=== PATIENT | male | born 1950 | race Caucasian/White ===

== ENCOUNTER 2021-05-02 12:15 | Emergency (ER) | payer OTHER ==
[2021-05-02] MEDS ORDERED: Acetaminophen 325 MG Tab PO PRN ×2 (13:38→14:00)
--- NOTE | 2021-05-02 13:38 | EDM.PDOC ---
ED HPI GENERAL MEDICAL PROBLEM - General Chief Complaint: General Stated Complaint: MEDICAL [facility] Time Seen by Provider: 05/02/21 13:26 Source of Information: Reports: Patient, RN Notes Reviewed History Limitations: Reports: No Limitations - History of Present Illness INITIAL COMMENTS - FREE TEXT/NARRATIVE: -year-old gentleman presents emergency department day complaint of fever, body aches, diarrhea he feels lightheaded and dizzy he has had symptoms for about 6 days was diagnosed with COVID-19 yesterday. Brought in by EMS services is systolic blood pressure has been on the lower side systolic of 90 Generalized Pain Score (Numeric/FACES): 6 Lower Abdomen Pain Score (Numeric/FACES): 6 - Related Data Allergies Allergy/AdvReac Type Severity Reaction Status Date / Time No Known Allergies Allergy Verified 05/02/21 12:25 Home Meds: Home Meds Cetirizine [ZyrTEC] 10 mg PO DAILY 05/02/21 [History] Levothyroxine 112 mcg PO ACBREAKFAST 05/02/21 [History] Losartan [Cozaar] 50 mg PO DAILY 05/02/21 [History] Omeprazole 20 mg PO DAILY 05/02/21 [History] Tamsulosin [Flomax] 0.4 mg PO DAILY 05/02/21 [History] Zolpidem [Ambien] 10 mg PO DAILY 05/02/21 [History] hydroCHLOROthiazide [Hydrochlorothiazide] 12.5 mg PO DAILY 05/02/21 [History] Past Medical History Cardiovascular History: Reports: High Cholesterol, Hypertension Gastrointestinal History: Reports: GERD Genitourinary History: Reports: BPH Endocrine/Metabolic History: Reports: Hypothyroidism - Past Surgical History GI Surgical History: Reports: Colonoscopy Social & Family History - Tobacco Use Tobacco Use Status *Q: Never Tobacco User - Caffeine Use Caffeine Use: Reports: Coffee - Recreational Drug Use Recreational Drug Use: No ED ROS GENERAL - Review of Systems Review Of Systems: See Below Constitutional: Reports: Fever, Chills, Weakness, Fatigue HEENT: Reports: No Symptoms Respiratory: Reports: No Symptoms Cardiovascular: Reports: No Symptoms GI/Abdominal: Reports: Abdominal Pain, Diarrhea, Nausea, Vomiting : Reports: No Symptoms Neurological: Reports: No Symptoms ED EXAM, GENERAL - Physical Exam Exam: See Below Exam Limited By: No Limitations General Appearance: Alert, WD/WN, No Apparent Distress Respiratory/Chest: No Respiratory Distress, Lungs Clear, Normal Breath Sounds, No Accessory Muscle Use, Chest Non-Tender Cardiovascular: Regular Rate, Rhythm, No Murmur GI/Abdominal: Soft, Non-Tender Course - Vital Signs Last Recorded V/S: Last Vital Signs Temp 98.4 F 05/02/21 14:58 Pulse 69 05/02/21 14:58 Resp 18 05/02/21 14:58 BP 105/66 05/02/21 14:58 Pulse Ox 96 05/02/21 14:58 - Orders/Labs/Meds Orders: Active Orders 24 hr Category Date Time Status Acetaminophen [TylenoL] Med 05/02/21 14:00 Active 650 mg PO ONETIME PRN Acetaminophen [TylenoL] Med 05/02/21 13:38 Active 650 mg PO Q4H PRN EPINEPHrine [Adrenalin] Med 05/02/21 14:00 Active 0.3 mg IM ONETIME PRN Famotidine [Pepcid] Med 05/02/21 14:00 Active 20 mg IV ONETIME PRN Sodium Chloride 0.9% [Normal Saline] 1,000 ml Med 05/02/21 14:00 Active IV ASDIRECTED diphenhydrAMINE [Benadryl] Med 05/02/21 14:00 Active 50 mg IVPUSH ONETIME PRN methylPREDNISolone Sod Succ [Solu-MEDROL] Med 05/02/21 14:00 Active 125 mg IVPUSH ONETIME PRN Isolation [COMM] Stat Oth 05/02/21 13:38 Ordered Medication Orders Acetaminophen (Acetaminophen 325 Mg Tab) 650 mg PO Q4H PRN PRN Reason: Fever Greater Than 101 Acetaminophen (Acetaminophen 325 Mg Tab) 650 mg PO ONETIME PRN PRN Reason: HEADACHE,CHILLS Diphenhydramine HCl (Diphenhydramine 50 Mg/Ml Sdv) 50 mg IVPUSH ONETIME PRN PRN Reason: ALLERGIC RXN Epinephrine HCl (Epinephrine 1 Mg/Ml Sdv) 0.3 mg IM ONETIME PRN PRN Reason: ALLERGIC RXN Famotidine (Famotidine 20 Mg/2 Ml Sdv) 20 mg IV ONETIME PRN PRN Reason: ALLERGIC RXN Sodium Chloride (Normal Saline) 1,000 mls @ 500 mls/hr IV ASDIRECTED [facility] Last Admin: 05/02/21 13:52 Dose: 500 mls/hr Documented by: VALENTINO Methylprednisolone Sodium Succinate (Methylprednisolone Sodium Succinate 125 Mg/2 Ml Sdv) 125 mg IVPUSH ONETIME PRN PRN Reason: ALLERGIC RXN Labs: Laboratory Tests 05/02/21 05/02/21 05/02/21 Range/Units 13:55 13:55 13:55 WBC 4.3 L (4.5-11.0) K/uL RBC 4.61 (4.30-5.90) M/uL Hgb 14.0 (12.0-15.0) g/dL Hct 39.0 L (40.0-54.0) % MCV 85 (80-98) fL MCH 30 (27-31) pg MCHC 36 (32-36) % Plt Count 153 (150-400) K/uL Neut % (Auto) 76.3 H (36-66) % Lymph % (Auto) 17.7 L (24-44) % [place] % (Auto) 5.8 (2-6) % Eos % (Auto) 0.0 L (2-4) % Baso % (Auto) 0.2 (0-1) % Sodium (140-148) mmol/L Potassium (3.6-5.2) mmol/L Chloride (100-108) mmol/L Carbon Dioxide (21-32) mmol/L Anion Gap (5.0-14.0) mmol/L BUN (7-18) mg/dL Creatinine (0.8-1.3) mg/dL Est Cr Clr Drug Dosing mL/min Estimated GFR (MDRD) (>60) Glucose (74-106) mg/dL Lactic Acid 1.0 (0.4-2.0) mmol/L Calcium (8.5-10.1) mg/dL Total Bilirubin (0.2-1.0) mg/dL AST (15-37) U/L ALT (12-78) U/L Alkaline Phosphatase (46-116) U/L C-Reactive Protein 1.17 H (0.0-0.3) mg/dL Total Protein (6.4-8.2) g/dL Albumin (3.4-5.0) g/dL Globulin (2.3-3.5) g/dL Albumin/Globulin Ratio (1.2-2.2) Procalcitonin ng/mL 11/04/21 11/04/21 Range/Units 13:55 13:55 WBC (4.5-11.0) K/uL RBC (4.30-5.90) M/uL Hgb (12.0-15.0) g/dL Hct (40.0-54.0) % MCV (80-98) fL MCH (27-31) pg MCHC (32-36) % Plt Count (150-400) K/uL Neut % (Auto) (36-66) % Lymph % (Auto) (24-44) % [place] % (Auto) (2-6) % Eos % (Auto) (2-4) % Baso % (Auto) (0-1) % Sodium 132 L (140-148) mmol/L Potassium 3.4 L (3.6-5.2) mmol/L Chloride 94 L (100-108) mmol/L Carbon Dioxide 26 (21-32) mmol/L Anion Gap 15.4 H (5.0-14.0) mmol/L BUN 27 H (7-18) mg/dL Creatinine 1.5 H (0.8-1.3) mg/dL Est Cr Clr Drug Dosing 42.84 mL/min Estimated GFR (MDRD) 46 L (>60) Glucose 107 H (74-106) mg/dL Lactic Acid (0.4-2.0) mmol/L Calcium 8.3 L (8.5-10.1) mg/dL Total Bilirubin 0.6 (0.2-1.0) mg/dL AST 40 H (15-37) U/L ALT 39 (12-78) U/L Alkaline Phosphatase 47 (46-116) U/L C-Reactive Protein (0.0-0.3) mg/dL Total Protein 6.8 (6.4-8.2) g/dL Albumin 3.2 L (3.4-5.0) g/dL Globulin 3.6 H (2.3-3.5) g/dL Albumin/Globulin Ratio 0.9 L (1.2-2.2) Procalcitonin 0.18 ng/mL Meds: Medications Generic Name Dose Route Start Last Admin Trade Name Freq PRN Reason Stop Dose Admin Acetaminophen 650 mg 05/02/21 13:38 Acetaminophen 325 Mg Tab PO Q4H PRN Fever Greater Than 101 Acetaminophen 650 mg 05/02/21 14:00 Acetaminophen 325 Mg Tab PO ONETIME PRN HEADACHE,CHILLS Diphenhydramine HCl 50 mg 05/02/21 14:00 Diphenhydramine 50 Mg/Ml Sdv IVPUSH ONETIME PRN ALLERGIC RXN Epinephrine HCl 0.3 mg 05/02/21 14:00 Epinephrine 1 Mg/Ml Sdv IM ONETIME PRN ALLERGIC RXN Famotidine 20 mg 05/02/21 14:00 Famotidine 20 Mg/2 Ml Sdv IV ONETIME PRN ALLERGIC RXN Sodium Chloride 1,000 mls @ 500 mls/hr 05/02/21 14:00 05/02/21 13:52 Normal Saline IV 500 mls/hr ASDIRECTED VERONICA Administration Methylprednisolone Sodium Succinate 125 mg 05/02/21 14:00 Methylprednisolone Sodium Succinate 125 Mg/2 Ml Sdv IVPUSH ONETIME PRN ALLERGIC RXN Discontinued Medications Generic Name Dose Route Start Last Admin Trade Name Freq PRN Reason Stop Dose Admin Lactated Ringer's 500 mls @ 500 mls/hr 05/02/21 13:39 Ringers, Lactated IV 05/02/21 14:38 BOLUS ONE Bamlanivimab 700 mg/ 160 mls @ 310 mls/hr 05/02/21 14:00 05/02/21 14:24 Etesevimab 1,400 mg/ Sodium IV 05/02/21 14:30 310 mls/hr Chloride ONETIME ONE Administration Ondansetron HCl 4 mg 05/02/21 13:44 05/02/21 13:56 Ondansetron 4 Mg/2 Ml Sdv IVPUSH 05/02/21 13:45 4 mg ONETIME ONE Administration Departure - Departure Time of Disposition: 15:46 Disposition: Home, Self-Care 01 Condition: Fair Clinical Impression: COVID-19 - Discharge Information Instructions: 10 Things You Can Do to Manage Your COVID-19 Symptoms at Home - [facility] (01/11/2021) Referrals: PCP,Unknown [Primary Care Provider] - Forms: ED Department Discharge Additional Instructions: Continue symptomatic care, please followup with your primary care provider in 7-10 days if not better, please call return to the emergency department with worsening of symptoms. Sepsis Event Note (ED) - Evaluation Sepsis Screening Result: No Definite Risk - Focused Exam Vital Signs: Vital Signs Temp Temp Pulse Resp BP Pulse Ox 05/02/21 14:58 98.4 F 69 18 105/66 96 05/02/21 14:44 98.2 F 68 18 104/67 94 L 05/02/21 14:30 97.4 F 68 18 106/66 95 05/02/21 14:15 67 105/68 94 L 05/02/21 14:00 69 18 86/56 L 96 05/02/21 13:25 66 91/55 L 93 L 05/02/21 12:32 68 100/60 94 L 05/02/21 12:29 97.8 F 72 16 97/70 96 05/02/21 12:25 97.8 F 72 16 97/70 96 - My Orders Last 24 Hours: My Active Orders 05/02/21 13:38 Acetaminophen [TylenoL] 650 mg PO Q4H PRN Isolation [COMM] Stat 05/02/21 14:00 Acetaminophen [TylenoL] 650 mg PO ONETIME PRN EPINEPHrine [Adrenalin] 0.3 mg IM ONETIME PRN Famotidine [Pepcid] 20 mg IV ONETIME PRN Sodium Chloride 0.9% [Normal Saline] 1,000 ml IV ASDIRECTED diphenhydrAMINE [Benadryl] 50 mg IVPUSH ONETIME PRN methylPREDNISolone Sod Succ [Solu-MEDROL] 125 mg IVPUSH ONETIME PRN - Assessment/Plan Last 24 Hours: My Active Orders 05/02/21 13:38 Acetaminophen [TylenoL] 650 mg PO Q4H PRN Isolation [COMM] Stat 05/02/21 14:00 Acetaminophen [TylenoL] 650 mg PO ONETIME PRN EPINEPHrine [Adrenalin] 0.3 mg IM ONETIME PRN Famotidine [Pepcid] 20 mg IV ONETIME PRN Sodium Chloride 0.9% [Normal Saline] 1,000 ml IV ASDIRECTED diphenhydrAMINE [Benadryl] 50 mg IVPUSH ONETIME PRN methylPREDNISolone Sod Succ [Solu-MEDROL] 125 mg IVPUSH ONETIME PRN Plan: Assessment Acuity = acute Site and laterality = viral syndrome Etiology = COVID-19 Manifestations = none Location of injury = Home Lab values = WBC low at 4.3 consistent leukopenia, sodium low at 132 consistent hyponatremia potassium low at 3.4 consistent hypokalemia creatinine elevated 1.5 consistent acute renal failure stage T3a lactic acid normal 1.0 AST slightly elevated at 40 consistent with elevated liver enzymes CRP slightly elevated 1.17 procalcitonin negative at 0.18 chest x-ray demonstrates Covid pneumonitis Plan He was provided monoclonal antibody therapy in the emergency department he never became hypoxic discharge home symptomatic treatment This note was dictated using [employer] voice recognition software please call with any questions on syntax or grammar.
[2021-05-02] MEDS ORDERED: Lactated Ringers 500 ML IV ONE (13:39)
[2021-05-02] MEDS ORDERED: Ondansetron 4 MG/2 ML SDV IVPUSH ONE (13:44)
[2021-05-02] MEDS ORDERED: EPINEPHrine 1 MG/ML SDV IM PRN (14:00)
[2021-05-02] MEDS ORDERED: Famotidine 20 MG/2 ML SDV IV PRN (14:00)
[2021-05-02] MEDS ORDERED: diphenhydrAMINE 50 MG/ML SDV IVPUSH PRN (14:00)
[2021-05-02] MEDS ORDERED: Sodium Chloride 0.9% 1,000 ML IV SCH (14:00)
[2021-05-02] MEDS ORDERED: Bamlanivimab 700 MG, ETESEVIMAB 1,400 MG in Sodium Chloride 0.9% 100 ML IV ONE (14:00)
[2021-05-02] MEDS ORDERED: methylPREDNISolone Sodium Succinate 125 MG/2 ML SDV IVPUSH PRN (14:00)
--- NOTE | 2021-05-02 15:07 | CR ---
CHEST: Portable 05/02/2021 at 2:04 PM CLINICAL HISTORY:Respiratory failure COMPARISON:None FINDINGS: There is some patchy density in the left lower lobe. There is a generalized increase in the lung markings bilaterally. Heart size and pulmonary vascularity are normal Impression: Patchy left lower lobe density and diffuse increase in lung markings suggest pneumonitis.
== END 2021-05-02 16:48 | disposition home or self-care (01) ==
LOC: JP.ED 12:15
DX: U07.1 COVID-19 (principal); E78.00 Pure hypercholesterolemia, unspecified; I10 Essential (primary) hypertension; K21.9 Gastro-esophageal reflux disease without esophagitis; N40.0 Benign prostatic hyperplasia without lower urinary tract symptoms; E03.9 Hypothyroidism, unspecified; Z79.899 Other long term (current) drug therapy
CPT/HCPCS: 36415; 71045; 80053; 83605; 84145; 85025; 86140; 96374; 99284; J2405; J7030; M0245; Q0245

== ENCOUNTER 2021-09-09 12:44 | Emergency (ER) | payer OTHER ==
[2021-09-09] MEDS ORDERED: Bacitracin Oint 1 GM U/D Packet TOP ONE (13:22)
[2021-09-09] MEDS ORDERED: Diphtheria,Pertussis(Acell),Tetanus Vaccine 0.5 ML Syringe IM ONE (13:22)
== END 2021-09-09 13:43 | disposition home or self-care (01) ==
LOC: JP.ED 12:44
DX: T33.09XA Superficial frostbite of other part of head, initial encounter (principal); E78.00 Pure hypercholesterolemia, unspecified; I10 Essential (primary) hypertension; K21.9 Gastro-esophageal reflux disease without esophagitis; E03.9 Hypothyroidism, unspecified; N40.0 Benign prostatic hyperplasia without lower urinary tract symptoms; Z23 Encounter for immunization; Z79.899 Other long term (current) drug therapy; X31.XXXA Exposure to excessive natural cold, initial encounter
CPT/HCPCS: 90471; 90715; 99282; 99283

== ENCOUNTER 2022-06-25 09:18 | Emergency (ER) | payer OTHER ==
[2022-06-25] MEDS ORDERED: Naloxone 0.4 MG/ML SDV IVPUSH PRN (09:21)
[2022-06-25] MEDS ORDERED: Sodium Chloride 0.9% 10 ML Syringe FLUSH PRN (09:26)
[2022-06-25 09:59] LABS: ESTIMATED GFR 40 mL/min (>60)
[2022-06-25] MEDS ORDERED: Haloperidol Lactate 5 MG/ML SDV IM ONE (11:11)
[2022-06-25] MEDS ORDERED: LORazepam 2 MG/ML SDV IM ONE (11:11)
[2022-06-25] MEDS ORDERED: diphenhydrAMINE 50 MG/ML SDV IM ONE (11:11)
== END 2022-06-25 15:53 ==
LOC: JP.ED 09:18
DX: G47.9 Sleep disorder, unspecified (principal); G89.4 Chronic pain syndrome; E03.9 Hypothyroidism, unspecified; I12.9 Hypertensive chronic kidney disease with stage 1 through stage 4 chronic kidney disease, or unspecified chronic kidney disease; N18.9 Chronic kidney disease, unspecified; K21.9 Gastro-esophageal reflux disease without esophagitis; N40.0 Benign prostatic hyperplasia without lower urinary tract symptoms; E78.5 Hyperlipidemia, unspecified; E78.00 Pure hypercholesterolemia, unspecified; Z79.899 Other long term (current) drug therapy; Z20.822 Contact with and (suspected) exposure to COVID-19
CPT/HCPCS: 36415; 80053; 80143; 80179; 80305; 80307; 82803; 84443; 85025; 87635; 93005; 96374; 99285; J2310; U0002